=== PATIENT | male | born 1995 ===

== ENCOUNTER 2019-09-10 13:52 | Inpatient (IN) ==
[2019-09-10] MEDS ORDERED: SODIUM CHLORIDE 0.9% 1,000 ML IV STA (14:29)
[2019-09-10] MEDS ORDERED: HYDROmorphone 2 MG/1 ML VIAL IV STA (14:29)
[2019-09-10] MEDS ORDERED: ONDANSETRON 4 MG/2 ML VIAL IV STA (14:29)
[2019-09-10] MEDS ORDERED: LEVOFLOXACIN INJ 500 MG in PREMIX 1 EACH IV STA (14:31)
[2019-09-10] MEDS ORDERED: CLINDAMYCIN INJ 600 MG in PREMIX 1 EACH IV STA (14:31)
[2019-09-10 15:13] LABS: Basophils % 0.3 % (0.0-0.8); Eosinophils # 0.3 10*3/uL (0.0-0.87); Eosinophils % 2.8 % (0.00-10.9); Hematocrit 40.8 VOL% (42.0-52.0); Hemoglobin 13.5 GM/DL (14.0-18.0); Immature Granulocytes % 0.5 %; Immature Granulocytes Absolute 0.06 #; Lymphocytes # 2.6 10*3/uL (1.4-4.0); Lymphocytes % 21.8 % (21.2-54.2); Mean Corpuscular HGB Conc 33.1 GM/DL (32-36); Mean Platelet Volume 8.2 FL (9.6-12.0); Monocytes % 12.5 % (1.7-12.7); Neutrophils % 62.1 % (38.7-73.9); Platelet Count 275 T/CUMM (130-400); Red Cell Distribution Width 12.8 % (9.3-17.3)
[2019-09-10 15:33] LABS: Albumin 3.5 G/DL (3.4-5.0); Total Protein 6.9 G/DL (6.4-8.3)
[2019-09-10] MEDS ORDERED: BISACODYL 5 MG TABLET PO PRN (15:45)
[2019-09-10] MEDS ORDERED: ACETAMINOPHEN 325 MG TABLET PO PRN (15:45)
[2019-09-10] MEDS ORDERED: ONDANSETRON 4 MG/2 ML VIAL IV PRN (15:45)
[2019-09-10] MEDS ORDERED: ALBUTEROL/IPRATROPIUM 3 ML NEB RESP TX PRN (15:45)
[2019-09-10] MEDS: metroNIDAZOLE INJ 500 MG in PREMIX 1 EACH IV SCH (17:45)
[2019-09-10] MEDS: KETOROLAC 15 MG/1 ML VIAL IV PRN (17:45)
[2019-09-10] MEDS: LACTATED RINGERS 1,000 ML IV SCH (17:45)
[2019-09-10] MEDS: NICOTINE 21 MG/24 HR PATCH TRANSDERM SCH (17:45)
[2019-09-11] MEDS: metroNIDAZOLE INJ 500 MG in PREMIX 1 EACH IV SCH ×3 (00:05→20:15)
[2019-09-11] MEDS: KETOROLAC 15 MG/1 ML VIAL IV PRN ×2 (00:05→16:08)
[2019-09-11] MEDS: LACTATED RINGERS 1,000 ML IV SCH ×3 (00:19→20:15)
[2019-09-11] MEDS: HYDROmorphone 2 MG/1 ML VIAL IV PRN ×4 (01:25→22:27)
[2019-09-11 03:21] LABS: Apearance,Urine CLEAR (Clear); Bilirubin,Urine Negative (Negative); Blood, Urine Small mg/dL (Negative); Glucose,Urine (UA) Negative (Negative); Ketones,Urine Negative (Negative); Mucus,Urine Occasional /LPF (Occasional); Nitrite,Urine Negative (Negative); Protein,Urine Negative; RBC,Urine <1 /HPF (0-4); Squamous Epithelial Cell,Urine Occasional /HPF (0-10); Urine Color Yellow (Yellow); Urine Specific Gravity 1.014 (1.001-1.035); Urine Urobilinogen < 2.0 EU/DL (0.2-1.0); WBC,Urine 1 /HPF (0-6)
[2019-09-11] MEDS ORDERED: DIAZEPAM 5 MG TABLET PO ONE ×2 (05:26→12:00)
[2019-09-11] MEDS ORDERED: LEVOFLOXACIN INJ 750 MG in PREMIX 1 EACH IV SCH (12:00)
[2019-09-11] MEDS ORDERED: propofoL 200 MG/20 ML VIAL IV ONE (14:19)
[2019-09-11] MEDS ORDERED: LIDOCAINE 2% 5 ML VIAL ONE (14:19)
[2019-09-11] MEDS ORDERED: SEVOFLURANE 1 UNIT/15 MINUTE INH ONE (14:19)
[2019-09-11] MEDS ORDERED: ROCURONIUM 100 MG/10 ML VIAL IV ONE (14:20)
[2019-09-11] MEDS ORDERED: fentaNYL 100 MCG/2 ML VIAL ONE (14:20)
[2019-09-11] MEDS ORDERED: GLYCOPYRROLATE 0.4 MG/2 ML VIAL ONE (14:20)
[2019-09-11] MEDS ORDERED: SUCCINYLCHOLINE 200 MG/10 ML VIAL ONE (14:20)
[2019-09-11] MEDS ORDERED: ONDANSETRON 4 MG/2 ML VIAL ONE ×2 (14:20→14:32)
[2019-09-11] MEDS ORDERED: NEOSTIGMINE 10 MG/10 ML VIAL ONE (14:20)
[2019-09-11] MEDS ORDERED: MIDAZOLAM 2 MG/2 ML VIAL ONE (14:21)
[2019-09-11] MEDS ORDERED: MEPERIDINE 25 MG/1 ML VIAL ONE (14:32)
[2019-09-11] MEDS ORDERED: MEPERIDINE 25 MG/1 ML VIAL IV PRN (14:35)
[2019-09-11] MEDS ORDERED: PROMETHAZINE INJ 25 MG in SODIUM CHLORIDE 0.9% 50 ML IV PRN (14:35)
[2019-09-11] MEDS ORDERED: ONDANSETRON 4 MG/2 ML VIAL IV PRN (14:35)
[2019-09-11] MEDS: NICOTINE 21 MG/24 HR PATCH TRANSDERM SCH (16:08)
[2019-09-11] MEDS: PANTOPRAZOLE 40 MG TABLET PO SCH (16:09)
[2019-09-12] MEDS: LACTATED RINGERS 1,000 ML IV SCH ×2 (00:32→08:00)
[2019-09-12] MEDS: KETOROLAC 15 MG/1 ML VIAL IV PRN (02:05)
[2019-09-12] MEDS: HYDROmorphone 2 MG/1 ML VIAL IV PRN ×2 (04:00→08:29)
[2019-09-12] MEDS: metroNIDAZOLE INJ 500 MG in PREMIX 1 EACH IV SCH (04:00)
[2019-09-12 04:56] LABS: Basophils % 0.1 % (0.0-0.8); Eosinophils % 0.1 % (0.00-10.9); Hemoglobin 12.4 GM/DL (14.0-18.0); Immature Granulocytes % 0.4 %; Immature Granulocytes Absolute 0.04 #; Lymphocytes # 1.7 10*3/uL (1.4-4.0); Lymphocytes % 16.3 % (21.2-54.2); Mean Corpuscular HGB Conc 33.5 GM/DL (32-36); Mean Corpuscular Volume 84.7 FL (87-102); Mean Platelet Volume 8.5 FL (9.6-12.0); Monocytes % 10.7 % (1.7-12.7); Neutrophils % 72.4 % (38.7-73.9); Platelet Count 263 T/CUMM (130-400); Red Blood Count 4.37 MC/CUMM (3.8-5.5); Red Cell Distribution Width 12.6 % (9.3-17.3); White Blood Count 10.3 T/CUMM (4-12)
[2019-09-12 05:24] LABS: Albumin 3.1 G/DL (3.4-5.0); Bilirubin,Total 0.6 MG/DL (0.2-1.0); Calcium 8.5 MG/DL (8.5-10.1); Osmolality,Calculated 270.8 MOS/KG (273-304); Total Protein 6.6 G/DL (6.4-8.3)
[2019-09-12] MEDS ORDERED: LEVOFLOXACIN INJ 500 MG in PREMIX 1 EACH IV SCH (08:16)
[2019-09-12] MEDS: PANTOPRAZOLE 40 MG TABLET PO SCH (08:30)
[2019-09-12] MEDS: NICOTINE 21 MG/24 HR PATCH TRANSDERM SCH (08:30)
[2019-09-12 08:51] VITALS: BP 136/88
== END 2019-09-12 12:25 | disposition home or self-care (01) | DRG 419 ==
LOC: EDUNIT# → EDBD → N.ED 13:52 → N.EDINP 15:45 → N.3E 16:43
PROVIDERS: ADMIT Surgery; ATTEND Surgery
PROC: LAPCHOL (2019-09-11 12:33)